=== PATIENT | female | born 1990 | race American Indian/Alaskan Native ===

== ENCOUNTER 2020-06-01 17:48 | Outpatient (CLI) | payer OTHER ==
[2020-06-01 18:49] VITALS: BP 125/79
[2020-06-01] MEDS ORDERED: LACTATED RINGERS 500 ML IV ONE (19:38)
[2020-06-01] MEDS ORDERED: FLUCONAZOLE 200 MG TAB PO SCH (20:00)
[2020-06-01] MEDS ORDERED: FLUCONAZOLE 200 MG TAB PO ONE (20:00)
[2020-06-01] MEDS ORDERED: fentaNYL 100 MCG/2 ML INJ IV ONE (20:23)
[2020-06-01] MEDS ORDERED: metroNIDAZOLE/NS 500 MG/100 ML 500 MG/100 ML BAG IV ONE (21:00)
[2020-06-01 23:01] LABS: Bacteria,Urine 3+ /HPF (Negative); Bilirubin,Urine NEG (Negative); Blood,Urine NEG (Negative); Color,Urine Yellow (Yellow); Mucus,Urine 3+ /HPF
== END 2020-06-01 23:00 | disposition home or self-care (01) ==
LOC: TRG 17:48 → APU 17:50 → TRG 23:00
PROVIDERS: ATTEND Obstetrics & Gynecology
DX: O47.03 False labor before 37 completed weeks of gestation, third trimester (principal); Z3A.28 28 weeks gestation of pregnancy
CPT/HCPCS: 59025; 81001; 96361; 96365; 96366; J7120; 96360

== ENCOUNTER 2020-07-19 16:25 | Inpatient (IN) | payer OTHER ==
[2020-07-19] MEDS ORDERED: LIDOCAINE (2%) 20 MG/1 ML VIAL 20 ML MDV INFILTRATI ONE (17:39)
[2020-07-19] MEDS ORDERED: ePHEDrine SULFATE 50 MG/1 ML INJ IV PRN (17:39)
[2020-07-19] MEDS ORDERED: TERBUTALINE 1 MG/1 ML INJ SUB-Q PRN (17:39)
[2020-07-19] MEDS ORDERED: MINERAL OIL 30 ML ORAL LIQD PO PRN (17:39)
--- NOTE | 2020-07-19 17:39 | History and Physical Report ---
History of Present Illness Date of examination: 07/19/20 Chief complaint: twins,active labor History of present illness: twin gestation, active labor PNC at [facility] no records Past History Past Surgical History: no surgical history - Obstetrical History Expected Date of Delivery: 08/23/20 Actual Gestation: 35 Week(s) 0 Day(s) : 6 Medications and Allergies Allergies Allergy/AdvReac Type Severity Reaction Status Date / Time promethazine [From Phenergan] Allergy Itching Verified 07/19/20 17:49 Home Medications Medication Instructions Recorded Confirmed Last Taken Type No Known Home Medications [No 04/26/20 04/26/20 Unknown History Reported Home Medications] - Vital Signs Vital signs: Vital Signs Pulse BP 95 H 124/84 07/19/20 16:32 07/19/20 16:32 Temp Pulse Resp BP Pulse Ox 95 H 124/84 07/19/20 16:32 07/19/20 16:32 - Physical Exam Breasts: Positive: deferred Cardiovascular: Regular rate Abdomen: Positive: normal appearance, normal bowel sounds Genitourinary (Female): Positive: normal external genitalia Vagina: Positive: normal moisture Deep Tendon Reflex Grade: Normal +2 - Obstetrical FHR: category 1 Cervical Dilatation: 6 Cervical Effacement Percentage: 80 station: 0 Uterine Contraction Pattern: Regular Results Result Diagrams: 07/19/20 18:00 All other labs normal. Assessment and Plan Twins, labor Plan: steroidsx1 rescue dose oxytocin epidural abx expect
[2020-07-19] MEDS ORDERED: BUTORPHANOL 2 MG/1 ML INJ IV PRN (17:46)
[2020-07-19] MEDS ORDERED: fentaNYL 100 MCG/2 ML INJ IV PRN (17:46)
[2020-07-19] MEDS ORDERED: OXYTOCIN DRIP 30 UNITS/500 ML BAG IV SCH (18:00)
[2020-07-19] MEDS ORDERED: AMPICILLIN/NS 2 GM/100 ML 2 GM/100 ML BAG IV ONE (20:00)
[2020-07-19] MEDS: LACTATED RINGERS 1,000 ML IV SCH ×2 (20:21→21:15)
[2020-07-19] MEDS ORDERED: NalbUPHINE 10 MG/1 ML INJ IV PRN (21:04)
[2020-07-19] MEDS ORDERED: diphenhydrAMINE 50 MG/ML VIAL IV PRN (21:04)
[2020-07-19] MEDS ORDERED: ONDANSETRON 4 MG/2 ML INJ IV PRN (21:04)
[2020-07-19] MEDS ORDERED: NALOXONE 2 MG/2 ML INJ IV PRN (21:04)
--- NOTE | 2020-07-19 21:04 | Anesthesia Consultation ---
Anesthesia Consult and Med Hx Date of service: 07/19/20 - Airway Anesthetic Teeth Evaluation: Good ROM Head & Neck: Adequate Mental/Hyoid Distance: Adequate Mallampati Class: Class I Intubation Access Assessment: Good - Pulmonary Exam CTA: Yes - Cardiac Exam Cardiac Exam: RRR - Pre-Operative Health Status ASA Pre-Surgery Classification: ASA2 Proposed Anesthetic Plan: Epidural - Pulmonary Hx Smoking: No Hx Asthma: No COPD: No Hx Pneumonia: No Hx Sleep Apnea: No - Cardiovascular System Hx Hypertension: No Hx Heart Attack/AMI: No - Central Nervous System Hx Seizures: No Hx Psychiatric Problems: No - Gastrointestinal Hx Gastroesophageal Reflux Disease: No - Endocrine Hx Renal Disease: No Hx End Stage Renal Disease: No Hx Hypothyroidism: No Hx Hyperthyroidism: No - Hematic Hx Anemia: No Hx Sickle Cell Disease: No - Other Systems Hx Alcohol Use: No
[2020-07-19 21:05] LABS: Hematocrit 27.3 % (30.3-42.9); Mean Corpuscular HGB Conc 33 % (30-34); Mean Corpuscular Volume 71 fl (79-97); Platelet Count 480 K/mm3 (140-440); Red Blood Count 3.87 M/mm3 (3.65-5.03)
--- NOTE | 2020-07-19 21:34 | Progress Note ---
Labor Epidural - Labor Epidural Start Time: 21:10 Stop Time: 21:25 Performed by:: KOSTA CRUZ (Traci SRNA) Procedure: Patient is requesting a laboring epidural for laboring pain. Patient IDed, H&P reviewed, all questions and concerns were answered, and consent was signed. Timeout was performed at bedside. Patient in sitting position. Sterile prep and drape was performed. 3ml of 1% lidocaine skin wheal at L[3]- L [4]. 18- gauge Touhy epidural needle was advanced to loss of resistance with air technique. Negative CSF, negative blood, transient parathesia RLE. Epidural catheter advanced to [11] centimeters. [-] Aspiration [-] test dose. Sterile dressing applied. Patient tolerated procedure.
[2020-07-19] MEDS ORDERED: BETAMET ACET/BETAMET NA PH 6 MG/ML INJ 5 ML MDV IM ONE (21:54)
[2020-07-19] MEDS ORDERED: fentaNYL-BUPIV 2 MCG/ML-0.125% 200 MCG/100 ML BAG EPIDURAL SCH (22:00)
[2020-07-19] MEDS: OXYTOCIN DRIP 30 UNITS/500 ML BAG IV SCH (22:25)
--- NOTE | 2020-07-19 22:32 | Ultrasound Report ---
ULTRASOUND OBSTETRIC LIMITED INDICATION / CLINICAL INFORMATION: presentation. Twin gestation. Clinical Gestational Age (GA) in weeks, days: 34, 4 TECHNIQUE: Transabdominal. COMPARISON: None available. FINDINGS: Twin intrauterine gestation. Twin A is in cephalic presentation closest to the cervix. Twin B is also in cephalic presentation anterior to twin A. HEART RATE (beats per minute): 133 for twin A; 145 for twin B AMNIOTIC FLUID INDEX (cm) = subjectively within normal limits. (normal = 7-24 cm) ADDITIONAL FINDINGS: None. IMPRESSION: 1. Twin intrauterine with cephalic presentation. Signer Name: Dileep Queen MD Signed: 07/19/2020 10:28 PM Workstation Name: [id number]
--- NOTE | 2020-07-19 22:47 | Progress Note ---
Subjective - Subjective Date of service: 07/19/20 Interval history: FHT reassuringx2 Cervix 7cm/90%/-2 BBOW plan for oxytocin at 2mu/min expect ,double set up in OR for delivery Bucky Pagan MD Objective - Vital Signs Vital Signs: Vital Signs - 12hr 07/19/20 07/19/20 07/19/20 16:32 18:26 18:31 Temperature Pulse Rate 95 H 115 H 90 Respiratory Rate Blood Pressure 124/84 Blood Pressure [Left] O2 Sat by Pulse 98 98 Oximetry 07/19/20 07/19/20 07/19/20 18:36 18:41 18:46 Temperature Pulse Rate 107 H 107 H 103 H Respiratory Rate Blood Pressure Blood Pressure [Left] O2 Sat by Pulse 99 98 99 Oximetry 07/19/20 07/19/20 07/19/20 18:51 18:56 19:01 Temperature Pulse Rate 107 H 113 H 101 H Respiratory Rate Blood Pressure Blood Pressure [Left] O2 Sat by Pulse 99 98 99 Oximetry 07/19/20 07/19/20 07/19/20 19:06 19:34 20:30 Temperature 97.8 F Pulse Rate 106 H 100 H Respiratory Rate Blood Pressure 138/80 Blood Pressure [Left] O2 Sat by Pulse 99 Oximetry 07/19/20 07/19/20 07/19/20 20:53 21:00 21:01 Temperature Pulse Rate 114 H 108 H Respiratory 18 Rate Blood Pressure Blood Pressure 138/80 [Left] O2 Sat by Pulse 100 99 Oximetry 07/19/20 07/19/20 07/19/20 21:05 21:10 21:15 Temperature Pulse Rate 104 H 95 H 102 H Respiratory Rate Blood Pressure Blood Pressure [Left] O2 Sat by Pulse 100 100 100 Oximetry 07/19/20 07/19/20 07/19/20 21:17 21:19 21:20 Temperature Pulse Rate 101 H 106 H 103 H Respiratory Rate Blood Pressure 121/73 127/78 Blood Pressure [Left] O2 Sat by Pulse 99 Oximetry 07/19/20 07/19/20 07/19/20 21:21 21:23 21:25 Temperature Pulse Rate 104 H 104 H 109 H Respiratory Rate Blood Pressure 120/73 122/72 121/74 Blood Pressure [Left] O2 Sat by Pulse 99 Oximetry 07/19/20 07/19/20 07/19/20 21:27 21:30 21:31 Temperature Pulse Rate 106 H 122 H 96 H Respiratory Rate Blood Pressure 126/79 128/79 138/89 Blood Pressure [Left] O2 Sat by Pulse 100 Oximetry 07/19/20 07/19/20 07/19/20 21:33 21:34 21:35 Temperature Pulse Rate 91 H 94 H 90 Respiratory Rate Blood Pressure 136/81 129/82 Blood Pressure [Left] O2 Sat by Pulse 100 Oximetry 07/19/20 07/19/20 07/19/20 21:37 21:39 21:40 Temperature Pulse Rate 106 H 91 H 97 H Respiratory Rate Blood Pressure 131/79 136/84 Blood Pressure [Left] O2 Sat by Pulse 100 Oximetry 07/19/20 07/19/20 07/19/20 21:41 21:43 21:45 Temperature Pulse Rate 99 H 94 H 91 H Respiratory Rate Blood Pressure 137/86 128/84 136/86 Blood Pressure [Left] O2 Sat by Pulse 100 Oximetry 07/19/20 07/19/20 07/19/20 21:47 21:49 21:51 Temperature Pulse Rate 96 H 86 84 Respiratory Rate Blood Pressure 126/81 129/90 128/84 Blood Pressure [Left] O2 Sat by Pulse 100 Oximetry 07/19/20 07/19/20 07/19/20 21:53 21:54 21:55 Temperature Pulse Rate 88 89 84 Respiratory Rate Blood Pressure 130/85 127/84 Blood Pressure [Left] O2 Sat by Pulse 100 Oximetry 07/19/20 07/19/20 07/19/20 21:57 21:59 22:01 Temperature Pulse Rate 86 83 89 Respiratory Rate Blood Pressure 124/83 132/86 131/90 Blood Pressure [Left] O2 Sat by Pulse 100 Oximetry 07/19/20 07/19/20 07/19/20 22:03 22:04 22:05 Temperature Pulse Rate 85 82 82 Respiratory Rate Blood Pressure 130/87 127/82 Blood Pressure [Left] O2 Sat by Pulse 100 Oximetry 07/19/20 07/19/20 07/19/20 22:07 22:09 22:11 Temperature Pulse Rate 75 80 80 Respiratory Rate Blood Pressure 132/86 126/82 129/82 Blood Pressure [Left] O2 Sat by Pulse 100 Oximetry 10/26/20 10/26/20 10/26/20 22:13 22:14 22:15 Temperature Pulse Rate 88 82 83 Respiratory Rate Blood Pressure 127/80 125/79 Blood Pressure [Left] O2 Sat by Pulse 100 Oximetry 07/19/20 07/19/20 07/19/20 22:17 22:19 22:21 Temperature Pulse Rate 83 85 90 Respiratory Rate Blood Pressure 131/83 125/80 129/80 Blood Pressure [Left] O2 Sat by Pulse 100 Oximetry 07/19/20 07/19/20 07/19/20 22:23 22:24 22:25 Temperature Pulse Rate 86 87 93 H Respiratory Rate Blood Pressure 127/80 124/80 Blood Pressure [Left] O2 Sat by Pulse 100 Oximetry 07/19/20 07/19/20 07/19/20 22:27 22:29 22:31 Temperature Pulse Rate 85 98 H 98 H Respiratory Rate Blood Pressure 123/80 127/85 130/85 Blood Pressure [Left] O2 Sat by Pulse 100 Oximetry 07/19/20 07/19/20 07/19/20 22:33 22:34 22:35 Temperature Pulse Rate 88 91 H 90 Respiratory Rate Blood Pressure 129/85 132/86 Blood Pressure [Left] O2 Sat by Pulse 100 Oximetry 07/19/20 22:37 Temperature Pulse Rate 84 Respiratory Rate Blood Pressure 125/82 Blood Pressure [Left] O2 Sat by Pulse Oximetry - Labs Labs: Abnormal Labs 07/19/20 18:00 Hgb 9.0 L Hct 27.3 L MCV 71 L MCH 23 L RDW 17.0 H Plt Count 480 H Laboratory Results - last 24 hr 07/19/20 07/19/20 18:00 18:00 WBC 7.0 RBC 3.87 Hgb 9.0 L Hct 27.3 L MCV 71 L MCH 23 L MCHC 33 RDW 17.0 H Plt Count 480 H Blood Type O POSITIVE Antibody Screen Negative
[2020-07-19] MEDS ORDERED: METHYLERGONOVINE MALEATE 0.2 MG/ML VIAL IM ONE ×2 (23:30→23:44)
[2020-07-20] MEDS ORDERED: METOCLOPRAMIDE 10 MG/2 ML INJ ONE (00:07)
[2020-07-20] MEDS ORDERED: BICITRA ORAL LIQD 30ML ONE (00:07)
[2020-07-20] MEDS ORDERED: FAMOTIDINE 20 MG/2 ML INJ IV ONE (00:08)
[2020-07-20] MEDS ORDERED: ceFAZolin 1 GM VIAL ONE ×2 (00:22→03:30)
[2020-07-20] MEDS ORDERED: LIDOCAINE 2%/EPINEPHRINE 1:200,000 VIAL (20 ML) INFILTRATI ONE (00:22)
[2020-07-20] MEDS ORDERED: CLINDAMYCIN 150 MG/ML VIAL 6 ML ONE (00:34)
[2020-07-20] MEDS ORDERED: PHENYLEPHRINE/NS 1,000 MCG/10 ML SYRINGE (OR USE) IV ONE ×2 (00:42→03:30)
[2020-07-20] MEDS ORDERED: HYDROcodone/ACETAMINOPHEN 5-325 MG TAB PO PRN (01:30)
[2020-07-20] MEDS ORDERED: MORPHINE 2 MG/1 ML INJ ONE ×5 (03:19→15:00)
[2020-07-20] MEDS ORDERED: OXYTOCIN/NS 30 UNIT/500 ML DRIP IV ONE (03:30)
[2020-07-20] MEDS ORDERED: ePHEDrine SULFATE 50 MG/1 ML INJ ONE (03:30)
[2020-07-20] MEDS ORDERED: LACTATED RINGERS 1000 ML IV SOLN ONE ×2 (03:30→15:00)
[2020-07-20] MEDS ORDERED: CLINDAMYCIN/D5W 900 MG/50 ML IVPB IV ONE (03:30)
[2020-07-20] MEDS ORDERED: ceFAZolin/STERILE WATER 2 GM/20 ML SYRINGE IV ONE (03:30)
[2020-07-20] MEDS ORDERED: LIDOCAINE (2%) 20 MG/1 ML VIAL 20 ML MDV INFILTRATI ONE (03:30)
[2020-07-20] MEDS ORDERED: LACTATED RINGERS 1,000 ML ONE (05:14)
[2020-07-20] MEDS ORDERED: HYDROcodone/ACETAMINOPHEN 5-325 MG TAB ONE ×3 (07:00→15:00)
[2020-07-20] MEDS ORDERED: oxyCODONE /ACETAMINOPHEN 5-325MG TAB ONE ×2 (10:29→22:47)
[2020-07-20] MEDS ORDERED: KETOROLAC 30 MG/1 ML INJ ONE ×2 (13:02→15:00)
[2020-07-20] MEDS ORDERED: D5W/LACTATED RINGERS 1,000 ML IV ONE (13:06)
[2020-07-20] MEDS ORDERED: D5RL 1000 ML IV SOLN IV ONE (15:00)
--- NOTE | 2020-07-20 17:06 | Post Anesthesia Evaluation ---
- Post Anesthesia Evaluation Patient Participated: Yes Airway Patent: Yes Stable Respiratory Function: Yes Nausea/Vomiting: No Temp > 96.8F: Yes Pain Manageable: Yes Adequeate Hydration: Yes Anesthesia Complications: No Block Receding Appropriately: Yes Patient on Ventilator: No
[2020-07-20] MEDS ORDERED: SODIUM CHLORIDE 0.9% 500 ML 500 ML IV NR (17:31)
[2020-07-20] MEDS ORDERED: ACETAMINOPHEN 325 MG TAB PO NR (17:34)
[2020-07-20] MEDS ORDERED: diphenhydrAMINE 25 MG CAP PO PRN (18:00)
[2020-07-20] MEDS: OXYTOCIN DRIP 30 UNITS/500 ML BAG IV SCH ×2 (20:59→22:50)
[2020-07-20] MEDS: oxyCODONE /ACETAMINOPHEN 5-325MG TAB PO PRN (23:00)
[2020-07-20] MEDS ORDERED: MORPHINE 2 MG/1 ML INJ IV PRN (23:13)
[2020-07-20] MEDS ORDERED: KETOROLAC 30 MG/1 ML INJ IV PRN (23:14)
[2020-07-20] MEDS ORDERED: HYDROCORTISONE 25 MG RECTAL SUPP PR PRN (23:29)
[2020-07-20] MEDS ORDERED: WITCH HAZEL/ GLYCERIN PAD TP PRN (23:29)
[2020-07-20] MEDS ORDERED: NALOXONE 0.4 MG/1 ML INJ IV PRN (23:29)
[2020-07-20] MEDS ORDERED: LANOLIN/ZINC/DIMETHICONE (LANSINOH) 7 GM TP PRN (23:29)
[2020-07-20] MEDS ORDERED: ACETAMINOPHEN 325 MG TAB PO PRN (23:29)
[2020-07-20] MEDS ORDERED: D5W/LACTATED RINGERS 1,000 ML IV SCH (23:45)
[2020-07-21 04:06] LABS: Hematocrit 21.7 % (30.3-42.9); Hemoglobin 7.3 gm/dl (10.1-14.3)
[2020-07-21] MEDS: oxyCODONE /ACETAMINOPHEN 5-325MG TAB PO PRN ×3 (06:15→19:45)
[2020-07-21] MEDS ORDERED: IRON DEXTRAN COMPLEX 100 MG/2 ML INJ IM NR ×2 (12:00→20:00)
[2020-07-21] MEDS: FERROUS SULFATE 325 MG TAB PO SCH ×2 (12:00→22:00)
--- NOTE | 2020-07-21 12:15 | Procedure Note ---
OB Delivery Note - Delivery Date of Delivery: 07/20/20 Surgeon: KEISHA CARDOZA - Vaginal Delivery presentation: vertex (Twin BAby A) Delivery position: OA Intrapartum events: none Delivery induction: none Delivery monitor: external FHT, external uterine Route of delivery: Episiotomy: none Delivery laceration: none Delivery comments: patient noted to be complete, brought to OR for delivery. Twin A delivered vertex atraumatically with spontaneous cry. Cord clamped and cut and baby a handed to waiting NICU staff. Baby B noted to be transverse. Attention turned to the abdomen for operative delivery of baby B. no vaginal or perineal lacerations noted. Bucky Cardoza MD - Section Preop diagnosis: other (Twin B Transverse presentation) Postop diagnosis: same section procedure: primary low transverse Disposition: PACU Complications: none Narrative: PREOPERATIVE DIAGNOSES: 1. Twin at 34.4 weeks, Baby B transverse presentation POSTOPERATIVE DIAGNOSES: 1. same, delivered PROCEDURE PERFORMED: Primary low-transverse section of Baby B after of Baby A. ANESTHESIA: Epidural. ESTIMATED BLOOD LOSS: 1200ml COMPLICATIONS: None. FINDINGS: male in transverse presentation, Normal uterus, tubes, and ovaries were noted. The procedure was described to the patient in detail including possible risks of bleeding, infection, injury to surrounding organs, and possible need for further surgery. Informed consent was obtained prior to proceeding with the procedure. PROCEDURE NOTE: The patient was taken to the operating room where epidural anesthesia was found to be adequate. The patient was prepped and draped in the usual sterile fashion in the dorsal supine position with a left-arteaga tilt. A Pfannenstiel skin incision was made with the scalpel and carried through to the underlying layer of fascia using the Bovie. The fascia was incised in the midline and extended laterally using Gandhi scissors. Oni clamps were used to elevate the superior aspect of the fascial incision, which was elevated, and the underlying rectus muscles were dissected off bluntly and using Gandhi scissors. Attention was then turned to the inferior aspect of the fascial incision, which in similar fashion was grasped with Oni clamps, elevated, and the underlying rectus muscles were dissected off bluntly and using Gandhi scissors. The rectus muscles were dissected in the midline. The peritoneum was bluntly dissected, entered, and extended superiorly and inferiorly with good visualization of the bladder. The bladder blade was inserted. The vesicouterine peritoneum was identified with pickups and entered sharply using Metzenbaum scissors. This incision was extended laterally and the bladder flap was created digitally. The bladder blade was reinserted. The lower uterine segment was incised in a transverse fashion using the scalpel and extended using manual traction. Clear fluid was noted. The was subsequently delivered atraumatically. The nose and mouth were bulb suctioned. The cord was clamped and cut. The infant was subsequently handed to the awaiting nursery nurse. The placentas were removed spontaneously intact with a 3-vessel cord noted. The uterus was exteriorized and cleared of all clots and debris. The uterine incision was repaired in 2 layers using 0 vicryl suture. Hemostasis was visualized. The uterus was returned to the abdomen. The pelvis was copiously irrigated. The uterine incision was reexamined and was noted to be hemostatic. The rectus muscles were reapproximated in the midline using 3-0 Vicryl. The fascia was closed with 0 Vicryl, the subcutaneous layer was closed with 3-0 vicryl and the skin was closed with mariam. Sponge, lap, and instrument counts were correct x2. The patient was stable at the completion of the procedure and was subsequently transferred to the recovery room in stable condition. Bucky Cardoza MD - B Gender: Male A Infant Gender: Male
--- NOTE | 2020-07-21 12:16 | Progress Note ---
Assessment and Plan A: Day#1 s/p Vaginal delivery of Twin A s/p Primary for Twin B Asymptomatic Anemia s/p Blood Transfusion P: Follow Routine PostOp Orders FeSO4 325mg PO BID Infed 100mg IM x 1 dose Encourage Increased Ambulation Subjective - Subjective Date of service: 07/21/20 Patient reports: appetite normal, voiding normally, pain poorly controlled, ambulating normally, other (Denies dizziness, fatigue, and weakness) : doing well, in NICU (one twin in NICU; one twin in PP Room with mother), bottle feeding Objective - Vital Signs Latest vital signs: Vital Signs Temp Pulse Resp BP BP Pulse Ox 07/21/20 08:27 98.2 F 76 18 128/80 97 07/21/20 00:52 97.8 F 81 20 113/67 98 07/21/20 00:51 97.8 F 81 20 113/67 98 07/21/20 00:19 98.1 F 81 20 116/66 98 07/20/20 23:49 98.2 F 97 H 20 125/79 97 07/20/20 23:19 98.4 F 88 20 121/77 99 07/20/20 22:49 98.3 F 84 20 118/74 99 07/20/20 22:34 98.5 F 82 20 116/64 99 07/20/20 20:55 98.4 F 86 20 121/64 99 07/20/20 20:05 97.5 F L 85 20 117/79 98 07/20/20 19:35 98.2 F 97 H 20 140/90 99 07/20/20 19:04 97.8 F 79 20 131/84 100 07/20/20 18:45 98.2 F 106 H 20 130/92 100 Intake and Output 07/20/20 07/21/20 07/21/20 22:59 06:59 14:59 Intake Total 1990 730 240 Output Total 200 Balance 1790 730 240 Intake: IV 1500 Oral 240 480 240 Blood Product 250 250 Leukoreduced Red Blood 0 250 Cells Unit [id number] Leukoreduced Red Blood 250 Cells Unit [id number] Output: Urine 200 Void 200 Other: Total, Intake Amount 240 240 240 Total, Output Amount 200 # Voids Void 1 - Exam Breasts: Present: normal Cardiovascular: Present: Regular rate Lungs: Present: Clear to auscultation, Normal air movement Abdomen: Present: normal appearance, soft, normal bowel sounds Uterus: Present: normal, firm, fundal height above umbilicus Extremities: Present: normal Incision: Present: normal, dry, dressed - Labs Labs: Abnormal lab results 07/19/20 07/21/20 Range/Units 18:00 03:22 Hgb 7.3 L (10.1-14.3) gm/dl Hct 21.7 L (30.3-42.9) % Crossmatch See Detail
[2020-07-21] MEDS ORDERED: IBUPROFEN 800 MG TAB PO PRN (16:30)
[2020-07-22] MEDS: MAGNESIUM HYDROXIDE (MOM) ORAL LIQD UDC PO PRN ×2 (02:00→22:02)
[2020-07-22] MEDS: oxyCODONE /ACETAMINOPHEN 5-325MG TAB PO PRN ×3 (02:03→16:28)
[2020-07-22] MEDS: FERROUS SULFATE 325 MG TAB PO SCH ×2 (07:52→22:02)
[2020-07-23] MEDS: oxyCODONE /ACETAMINOPHEN 5-325MG TAB PO PRN ×2 (00:05→10:08)
--- NOTE | 2020-07-23 10:19 | Discharge Summary ---
Providers - Providers Date of Admission: 07/19/20 17:39 Date of discharge: 07/24/20 Attending physician: KEISHA CARDOZA MD Primary care physician: KEISHA CARDOZA MD Hospitalization Reason for admission: active labor Delivery: Procedure: primary low transverse Episiotomy: none Laceration: none Incision: dry, intact (mariam intact, no drainage or bleeding noted) complications: none Discharge diagnosis: delivery baby: twins Hospital course: See admission H & P; OB operative note and PP progress notes Condition at discharge: Stable Disposition: DC-01 TO HOME OR SELFCARE - Discharge Diagnoses (1) Status post primary low transverse section Status: Acute (2) Anemia Status: Acute Qualifiers: Anemia type: iron deficiency Comment: Asymptomatic Plan - Discharge Medications Prescriptions: Ferrous Sulfate [Feosol 325 MG tab] 325 mg PO BID 30 Days #60 tablet Ibuprofen [Motrin] 600 mg PO Q8H PRN #30 tablet PRN Reason: Pain oxyCODONE /ACETAMINOPHEN [Percocet 5/325] 1 tab PO Q6HR PRN #20 tablet PRN Reason: Pain - Provider Discharge Summary Activity: routine, no sex for 6 weeks, no heavy lifting 4 weeks, no strenuous exercise Diet: other (Iron rich diet) Instructions: routine Additional instructions: [] Smoking cessation referral if applicable(refer to patient education folder for contact #) [] Refer to [facility] Booklet Call your doctor immediately for: * Fever > 100.5 * Heavy vaginal bleeding ( >1 pad per hour) * Severe persistent headache * Shortness of breath * Reddened, hot, painful area to leg or breast * Drainage or odor from incision. * Keep incision clean and dry at all times and follow doctor's instructions regarding bathing/showering - Follow up plan Follow up: KEISHA CARDOZA MD [Primary Care Provider] - 7 Days Forms: [facility] Discharge Summary, Discharge Signature Page
[2020-07-23] MEDS ORDERED: FERROUS SULFATE 325 MG TAB PO SCH (12:00)
[2020-07-23 16:49] VITALS: BP 125/74
== END 2020-07-23 17:10 | disposition home or self-care (01) | DRG 765 ==
LOC: APU 16:25 → TRG 16:25 → APU 17:39 → LD 20:57 → OB 07-20 17:01
PROVIDERS: ADMIT Obstetrics & Gynecology; ATTEND Obstetrics & Gynecology
PROC: 3E0R3BZ Introduction of Anesthetic Agent into Spinal Canal, Percutaneous Approach (ICD-10-PCS; 2020-07-19)
PROC: 00HU33Z Insertion of Infusion Device into Spinal Canal, Percutaneous Approach (ICD-10-PCS; 2020-07-19)
PROC: 3E033VJ Introduction of Other Hormone into Peripheral Vein, Percutaneous Approach (ICD-10-PCS; 2020-07-19)
PROC: 10D00Z1 Extraction of Products of Conception, Low, Open Approach (ICD-10-PCS; principal; 2020-07-20)
PROC: 10E0XZZ Delivery of Products of Conception, External Approach (ICD-10-PCS; 2020-07-20)
PROC: 30233N1 Transfusion of Nonautologous Red Blood Cells into Peripheral Vein, Percutaneous Approach (ICD-10-PCS; 2020-07-20)
DX: O60.14X0 Preterm labor third trimester with preterm delivery third trimester, not applicable or unspecified (principal); O30.003 Twin pregnancy, unspecified number of placenta and unspecified number of amniotic sacs, third trimester; Z3A.35 35 weeks gestation of pregnancy; Z37.2 Twins, both liveborn; Z20.828 Contact with and (suspected) exposure to other viral communicable diseases; O90.81 Anemia of the puerperium; O32.1XX2 Maternal care for breech presentation, fetus 2; D64.9 Anemia, unspecified
CPT/HCPCS: 36415; 76815; 80053; 81001; 83690; 84702; 85014; 85018; 85025; 85027; 86850; 86900; 86901; 86920; 88307; G0378; J0290; J0690; J0702; J1885; J2210; J2270; J2370; J2405; J2590; J7040; J7120; J7121; P9016; U0003

== ENCOUNTER 2020-07-25 17:24 | Emergency (ER) | payer OTHER ==
--- NOTE | 2020-07-25 17:29 | Emergency Department Report ---
Blank Doc - Documentation Documentation: 30-year-old female that was sent by her OBGYN for abdominal distention, fever, and pain. Patient is s/p vaginal and last week. Patient was in NICU and her OBGYN saw her and sent her to the ED. This initial assessment/diagnostic orders/clinical plan/treatment(s) is/are subject to change based on patient's health status, clinical progression and re- assessment by fellow clinical providers in the ED. Further treatment and workup at subsequent clinical providers discretion. Patient/guardians urged not to elope from the ED as their condition may be serious if not clinically assessed and managed. Initial orders include: 1- Patient sent to MAIN ED for further evaluation and treatment
[2020-07-25 17:35] VITALS: BP 129/97
[2020-07-25 18:07] LABS: Basophils % (Auto) 0.3 % (0.0-1.8); Eosinophils # (Auto) 0.3 K/mm3 (0.0-0.4); Eosinophils % (Auto) 2.2 % (0.0-4.3); Hematocrit 25.4 % (30.3-42.9); Hemoglobin 9.2 gm/dl (10.1-14.3); Lymphocytes # (Auto) 1.7 K/mm3 (1.2-5.4); Lymphocytes % (Auto) 12.2 % (13.4-35.0); Mean Corpuscular HGB Conc 36 % (30-34); Mean Corpuscular Volume 74 fl (79-97); Monocytes # (Auto) 1.1 K/mm3 (0.0-0.8); Monocytes % (Auto) 7.6 % (0.0-7.3); Platelet Count 638 K/mm3 (140-440); Red Blood Count 3.46 M/mm3 (3.65-5.03)
[2020-07-25 18:15] LABS: Red Cell Distribution Width 20.2 % (13.2-15.2)
[2020-07-25 18:25] LABS: Alanine Aminotransferase 29 units/L (7-56); Albumin 3.4 g/dL (3.9-5); Blood Urea Nitrogen 12 mg/dL (7-17); Calcium 8.9 mg/dL (8.4-10.2); Hemolysis Index 0
[2020-07-25 18:27] LABS: BUN/Creatinine Ratio 20
[2020-07-25 18:47] LABS: Bilirubin,Urine NEG (Negative); Blood,Urine MOD (Negative); Color,Urine Yellow (Yellow); Mucus,Urine FEW /HPF; Protein,Urine <15 mg/dL mg/dL (Negative); Urobilinogen,Urine < 2.0 mg/dL (<2.0)
== END 2020-07-25 22:50 | disposition left against medical advice (07) ==
LOC: ED 17:24
DX: R50.9 Fever, unspecified (principal); Z53.21 Procedure and treatment not carried out due to patient leaving prior to being seen by health care provider
CPT/HCPCS: 36415; 80053; 81001; 83690; 84702; 85025